=== PATIENT | female | born 1990 | race Caucasian/White ===

== ENCOUNTER → 2022-08-14 07:39 | Outpatient (CLI) | payer BC, SELFPAY ==
--- NOTE | ~2022-08-14 | US_ITS ---
EXAMINATION: US transvaginal DATE: 08/14/2022 08:16 INDICATION: ICD placement TECHNIQUE: Multiple endovaginal sonographic images of the pelvis were obtained. COMPARISON: None. FINDINGS: The uterus measures 7.0 x 3.8 x 4.8 cm. The IUD is not definitely identified. The endometri al complex measures 3 mm. The ovaries are not visualized however no adnexal abnormality is seen. Ther e is no free fluid in the pelvis. IMPRESSION: 1. IUD not definitely identified. Reviewed, dictated and finalized at location A.
== END ==
PROVIDERS: PCP Obstetrics & Gynecology Gynecology; Visit Provider Obstetrics & Gynecology Gynecology
DX: Z30.431 Encounter for routine checking of intrauterine contraceptive device (principal)
CPT/HCPCS: 76830

== ENCOUNTER 2022-08-27 09:47 | Outpatient (CLI) | payer BC, SELFPAY ==
[2022-08-27 10:20] LABS: Anion Gap 8 mmol/L (8-16); Blood Urea Nitrogen 14 mg/dL (7-17); Calcium 8.9 mg/dL (8.4-10.2); Carbon Dioxide 28 mmol/L (22-30); Chloride 99 mmol/L (98-107); Estimated Glomerular Filt Rate > 60; Glucose 188 mg/dL (65-110); Potassium 4.1 mmol/L (3.4-5.0); Sodium 135 mmol/L (137-145)
== END 2022-08-27 09:48 | disposition home or self-care (01) ==
LOC: ANHSURGERY 09:51
PROVIDERS: Anesthesiology; Visit Provider Obstetrics & Gynecology Gynecology
DX: E11.9 Type 2 diabetes mellitus without complications (principal); Z01.818 Encounter for other preprocedural examination
CPT/HCPCS: 36415; 80048

== ENCOUNTER 2022-08-30 02:20 | Day surgery (SDC) | payer BC, SELFPAY ==
[2022-08-23 12:56] VITALS: BMI 55.8
--- NOTE | 2022-08-23 13:01 | PC.NURSE ---
Report to the Outpatient Waiting Room, entrance under the green pavilion located off [facility], at time 11:45 on date 08/30/22. Planned Procedure Time: 1:45. Time changes happen often and if your time is changed the preop area will call you the afternoon before. - You and your visitor will be asked to self-screen and do not enter if you have any COVID symptoms. - A mask is optional within the hospital at this time. Patients may have clear liquids (water, carbonated beverages, clear teas, apple juice) until 3 hours prior to surgery (10:45) with a maximum of 20 ounces. - No food from midnight until time of surgery Take the following medications with a SIP of water the morning of surgery: FLUOXETINE DO NOT STOP ANY OF YOUR OTHER PRESCRIPTION MEDICATIONS PRIOR TO SURGERY EXCEPT THE FOLLOWING Medications to discontinue per physician: VITAMINS Date to take last dose: 08/26/22 Please no make-up, nail sami, hairspray, perfume, deodorant, or body powder the day of surgery. No jewelry (including any body piercings) or valuables the day of surgery, leave them at home. Please take a shower or bath the night before, or the morning of, surgery with an antibacterial soap. Wear comfortable, loose fitting clothing. - Jewelry must be removed prior to entering the operating room. Rings and piercings that are not removed may be cut off. - The hospital will not accept responsibility for valuables. - Please leave all valuables, including medications, at home the day of surgery. If you are going home after surgery, a licensed hyster driver must drive you home. - NO public transportation without another adult if you receive anesthesia. - We recommend that an adult stay with you for 24 hours following discharge. - We also recommend that you do not drive, make important decision, drink alcoholic beverages, or take any drugs that were not prescribed by your health care provider for at least 24 hours after your discharge time. Follow any additional instructions given to you from your surgeon. If you or anyone in your household have experienced Covid symptoms in the past week, please notify your surgeon or the nurse liaison at the phone number below for possible testing. Telephone instructions given to PT - MASOUD METZGER and asked if any additional questions and then verbalized understanding. Patient advised to call surgeon office or pre surgery nurse liaison [phone] if any additional questions.
--- NOTE | 2022-08-30 09:10 | WPDHPUPDATE1 ---
History and Physical Update Update Date/Time: 08/30/22 09:10 History and Physical has been reviewed, including an updated exam of the patient. There are NO changes in the patient's condition. Risks, benefits, and alternatives have been discussed and questions answered. Patient agrees to proceed with procedure.
--- NOTE | 2022-08-30 09:10 | PM.HPGS ---
History of Present Illness History of Present Illness Consent: Risks, benefits, and alternatives have been discussed and questions answered. Patient agrees to proceed with procedure. Chief complaint: retained iud Narrative: Emmie Goldberg is a 32 year old female with retained IUD. Patient presented to the office for removal of IUD and the strings were in the normal position and visible. The IUD was not able to be removed due to significant resistance and pain when grasping the strings and attempting removal. Pelvic ultrasound was not helpful in did not identify an IUD. Repeat exam after the ultrasound reveals the string still to be present at the usual position. Recommended at that time to proceed with hysteroscopic removal. Risks of infection, bleeding, and perforation are reviewed. Patient voices understanding and agrees to proceed. Review of Systems Review of Systems: not repeated day of surgery; patient states no changes in status PMFSH Past Medical History Medical History (Updated 08/30/22 @ 09:15 by Mary Kay Pinon MD) ADD (attention deficit disorder) Anxiety and depression Crohn's disease History of PCOS Morbidly obese BMI 56.6 Surgical History Surgical History (Updated 08/30/22 @ 09:13 by Mary Kay Pinon MD) History of section, low transverse x2 Social History Social History Smoking status: Current some day smoker Tobacco type: cigarettes Alcohol intake: never Substance use: never Substance use type: does not use Living arrangements: with family Spiritual care concerns: No Meds Home Medications and Allergies Home Medications Medication Instructions Recorded Confirmed Type ergocalciferol (vitamin D2) 1,250 1,250 mcg PO 2XW 08/23/22 08/23/22 History mcg (50,000 unit) capsule fluoxetine 40 mg capsule 40 mg PO DAILY 08/23/22 08/23/22 History metformin 500 mg tablet 500 mg PO BID 08/23/22 08/23/22 History Allergies Allergy/AdvReac Type Severity Reaction Status Date / Time No Known Allergies Allergy Unverified 08/23/22 12:53 Exam Const: General: obese ( 331 lb with BMI 56.6) Orientation/consciousness: patient oriented x3 Resp: Effort & Inspection: normal respiratory effort GI: GI Palp: Yes Soft to palpation, No Tenderness to palpation present (GI) and No Palpable mass present : External Female Exam: normal external appearance Speculum Exam - Vagina: normal appearance of the vagina and normal vaginal discharge Speculum Exam - Cervix: normal appearance of the cervix ( IUD strings x2 visualized at the normal location) Bimanual exam- vagina & uterus: uterine size normal and consistency normal Bimanual Exam- Adnexa, other: normal adnexae and No adnexal tenderness Neuro: General: patient oriented x3 Assessment and Plan Assessment and plan (1) Retained intrauterine contraceptive device (IUD): Code(s): T83.39XA - Other mechanical complication of intrauterine contraceptive device, initial encounter Status: Acute Assessment and Plan: inability to visualize on ultrasound above by exam appears to be imbedded within the myometrium plan to proceed with hysteroscopic removal of IUD
[2022-08-30] MEDS: ACETAMINOPHEN 500 MG TABLET 1000 MG PO (12:26)
--- NOTE | 2022-08-30 12:32 | WPDANESEPPF ---
Anes - Initial Pre Proc Eval Procedure: Operation Date: 08/30/22 13:45 Proposed Procedures p Hysteroscopy, with Intrauterine Device Removal - Mary Kay Pinon MD Date/Time: 08/30/22 12:32 Surgeon: Mary Kay Pinon MD Pre Op Diagnosis: retained iud Patient Data Age: 32 Gender: F Height: 1.64 m Weight: 150 kg Allergies Allergy/AdvReac Type Severity Reaction Status Date / Time No Known Allergies Allergy Unverified 08/30/22 12:08 Home Medications Medication Instructions Recorded Confirmed Type ergocalciferol (vitamin D2) 1,250 1,250 mcg PO 2XW 08/23/22 08/23/22 History mcg (50,000 unit) capsule fluoxetine 40 mg capsule 40 mg PO DAILY 08/23/22 08/23/22 History metformin 500 mg tablet 500 mg PO BID 08/23/22 08/23/22 History Patient hx anesthesia problems: none Family hx anesthesia problems: none Results Review: All pre-operative results and documents have been reviewed as part of the pre-operative evaluation. [facility] Past Medical History Medical History (Updated 08/30/22 @ 09:15 by Mary Kay iPnon MD) ADD (attention deficit disorder) Anxiety and depression Crohn's disease History of PCOS Morbidly obese BMI 56.6 Surgical History Surgical History (Updated 08/30/22 @ 09:13 by Mary Kay Pinon MD) History of section, low transverse x2 Social History Social History Smoking status: Current some day smoker Tobacco type: cigarettes Alcohol intake: never Substance use: never Substance use type: does not use Living arrangements: with family Spiritual care concerns: No Anes - Eval Final PreProcedure Day of Procedure 08/30/22 12:32 Patient weight: super morbidly obese Heart: regular rate and rhythm Lungs: clear to auscultation Airway: Mallampati scale class III Neurological: alert and oriented Last oral intake: >/= 8 hours ASA classification: IV Emergent: no Anesthetic plan: proceed Anesthesia type and monitoring: general GIVS (may use LMA if needed) and standard monitoring Results Review: All pre-operative results and documents have been reviewed as part of the pre-operative evaluation. Informed Consent: The patient's anesthetic plan and its attendant risks and benefits were discussed with the patient/family/POA. Questions were solicited and answers provided to the satisfaction of the patient/family/POA.
[2022-08-30 12:46] VITALS: BP 140/94; PULSE 81; RESP 18; TEMP 36.4; O2SAT 99
[2022-08-30 13:20] LABS: Glucose Point of Care 123 mg/dl (65-105)
[2022-08-30 13:50] LABS: Beta HCG Quantitative < 2.39 mIU/ML
[2022-08-30] MEDS: LIDOCAINE HCL 1% LOCAL INJ 20 ML VIAL 10 ML INFILTRATE (14:16)
--- NOTE | 2022-08-30 14:27 | W.PM.PROC2 ---
Procedure Note - Detailed Date of Procedure 08/30/22 Pre-op Diagnosis retained iud Post-op Diagnosis Same Procedure Performed hysteroscopy with removal of IUD Surgeon Mary Kay Pinon MD Anesthesia MAC and Local Findings uterus sounds to 8cm; IUD strings visible at the cervical os 2cm in length; IUD embedded in the cervix with the arm of the device Description of Procedure The patient is taken to the operating room and placed under anesthesia in the dorsal lithotomy position. She was prepped and draped in the usual sterile fashion. Rosebud speculum was placed in the vagina and the cervix grasped on the anterior lip with a tenaculum. Cervix is injected in each quadrant with 1% lidocaine. The os Finders are needed to open the internal os. The cervix is then opened enough to allow the uterus to be sounded to 8cm. The diagnostic hysteroscope was placed and the cavity appears completely normal with no IUD present. The hysteroscope was slowly removed and the IUD is noted within the cervical canal and 1 arm of the IUD is imbedded deep into the muscle. The grasper was placed through the hysteroscope and the arm that is not imbedded is grasped and the device and hysteroscope were attempted to be removed. This was not successful. The hysteroscope was fully removed and the polyp forceps used to grasp the IUD body within the cervical canal. IUD was able to be removed intact on the 1st attempt. All instruments were then removed and the patient awakened from anesthesia and taken to recovery in stable condition. The sponge, needle, and instrument counts are correct per the OR staff. The device is discarded. Estimated Blood Loss 5 Drains No Packing No Pathology None sent Complications No immediate complications Condition Stable Disposition PACU
[2022-08-30 14:29] VITALS: BP 117/79; PULSE 83; RESP 14; O2SAT 97
[2022-08-30] MEDS: LACTATED RINGERS 1,000 ML 30 ML IV CONT (14:29)
[2022-08-30 15:00] VITALS: BP 126/83; PULSE 62; RESP 20
[2022-08-30 15:30] VITALS: BP 127/83; PULSE 59; RESP 20
== END 2022-08-30 15:36 | disposition home or self-care (01) ==
PROVIDERS: Anesthesiology; Visit Provider Obstetrics & Gynecology Gynecology
PROC: 0U5B8ZZ Destruction of Endometrium, Via Natural or Artificial Opening Endoscopic (ICD-10-PCS; CPT 58563; principal; 2022-08-30 13:45)
DX: T83.39XA Other mechanical complication of intrauterine contraceptive device, initial encounter (principal); Y84.8 Other medical procedures as the cause of abnormal reaction of the patient, or of later complication, without mention of misadventure at the time of the procedure; F98.8 Other specified behavioral and emotional disorders with onset usually occurring in childhood and adolescence; E28.2 Polycystic ovarian syndrome; K50.90 Crohn's disease, unspecified, without complications; F41.8 Other specified anxiety disorders; Z79.84 Long term (current) use of oral hypoglycemic drugs; E66.01 Morbid (severe) obesity due to excess calories; Z68.43 Body mass index [BMI] 50.0-59.9, adult; F17.210 Nicotine dependence, cigarettes, uncomplicated
CPT/HCPCS: 58562; 36415; 82948; 84702; A9270; J1885; J2250; J2405; J2704; J3010; J7120